=== PATIENT | male | born 1955 | race Caucasian/White ===

== ENCOUNTER 2020-07-05 08:18 | Outpatient (REF) | payer OTHER, SELFPAY ==
[2020-07-05 10:28] LABS: MANUAL DIFF FLAG NO
[2020-07-05 10:32] LABS: Basophils Absolute Auto 0.1 X10*3/uL (0.0-0.2); Basophils Percent Auto 0.8 % (0-2); Eosinophils Absolute Auto 0.2 X10*3/uL (0.0-0.4); Hematocrit 42.9 % (42-52); Hemoglobin 15.3 g/dl (14.0-18.0); Imm Gran Abs Auto 0.01 X10*3/uL (0.00-0.03); Imm Gran Pct Auto 0.2 % (0.0-0.4); Lymphocytes Absolute Auto 1.9 X10*3/uL (1.2-4.9); Lymphocytes Percent Auto 31.7 % (20-40); Mean Corpuscular HGB Conc 35.7 g/dl (31.0-36.0); Mean Corpuscular Hemoglobin 34.8 pg (27.0-33.0); Mean Corpuscular Volume 97.5 fL (80-98); Mean Platelet Volume 10.8 fL (9.4-12.4); Monocytes Absolute Auto 0.7 X10*3/uL (0.1-1.2); Monocytes Percent Auto 11.2 % (2-11); Neutrophils Absolute Auto 3.2 X10*3/uL (2.0-8.3); Neutrophils Percent Auto 53.1 % (45-73); Platelet Count 258 X10*3/uL (160-400); Red Cell Distribution Width 11.9 % (11.0-16.0)
[2020-07-05 11:23] LABS: Cholesterol 194 mg/dL; Creatinine Urine 93.41 mg/dL; HDL Cholesterol 68 mg/dL; LDL Cholesterol Calculated 86 mg/dl; Microalbum/Creatinine Ratio Ur 11.7 ug/mg cr; Triglycerides 200 mg/dL
[2020-07-05 11:46] LABS: Prostate Specific Antigen Scr 0.33 ng/mL (<0.05-4.0); TSH reflex Free T4 1.24 uIU/mL (0.32-4.0)
== END 2020-07-05 08:19 | disposition home or self-care (01) ==
LOC: HO.WFDLDS 08:18
PROVIDERS: Visit Provider Family Medicine
DX: Z00.00 Encounter for general adult medical examination without abnormal findings (principal); I10 Essential (primary) hypertension; Z12.5 Encounter for screening for malignant neoplasm of prostate
CPT/HCPCS: 36415; 80061; 82043; 84153; 84443; 85025

== ENCOUNTER 2021-07-31 07:05 | Outpatient (REF) | payer OTHER, SELFPAY ==
[2021-07-31 12:02] LABS: Alanine Aminotransferase 23 U/L (0-40); Albumin Level 4.5 g/dL (3.5-5.0); Alkaline Phosphatase 56 U/L (39-117); Anion Gap 13 (12-20); Aspartate Amino Transferase 29 U/L (5-37); Bilirubin Total 0.8 mg/dL (0.0-1.0); Blood Urea Nitrogen 9 mg/dL (9-16); Carbon Dioxide 29 mmol/L (22-29); Chloride 103 mmol/L (96-108); Cholesterol 171 mg/dL; Estimated Glomerular Filt Rate > 60; Glucose Fasting 86 mg/dL (60-99); HDL Cholesterol 62 mg/dL; LDL Cholesterol Calculated 71 mg/dl; Potassium 3.8 mmol/L (3.3-5.1); Sodium 141 mmol/L (135-145); Total Protein 7.5 g/dL (6.5-8.0); Triglycerides 194 mg/dL
[2021-07-31 12:16] LABS: TSH reflex Free T4 1.26 uIU/mL (0.32-4.0)
== END 2021-07-31 07:06 | disposition home or self-care (01) ==
LOC: HO.WFDLDS 07:05
PROVIDERS: Visit Provider Family Medicine
DX: Z00.00 Encounter for general adult medical examination without abnormal findings (principal)
CPT/HCPCS: 36415; 80053; 80061; 84443

== ENCOUNTER 2022-10-22 07:00 | Outpatient (REF) | payer OTHER, SELFPAY ==
[2022-10-22 11:23] LABS: MANUAL DIFF FLAG NO
[2022-10-22 11:40] LABS: Basophils Percent Auto 0.8 % (0-2); Eosinophils Absolute Auto 0.2 X10*3/uL (0.0-0.4); Eosinophils Percent Auto 4.1 % (0-4); Hematocrit 43.8 % (42.0-52.0); Hemoglobin 14.6 g/dl (14.0-18.0); Imm Gran Abs Auto 0.01 X10*3/uL (0.00-0.03); Imm Gran Pct Auto 0.2 % (0.0-0.4); Lymphocytes Absolute Auto 1.8 X10*3/uL (1.2-4.9); Lymphocytes Percent Auto 34.4 % (20-40); Mean Corpuscular HGB Conc 33.3 g/dl (31.0-36.0); Mean Corpuscular Hemoglobin 34.4 pg (27.0-33.0); Mean Corpuscular Volume 103.3 fL (80.0-98.0); Mean Platelet Volume 11.2 fL (9.4-12.4); Monocytes Absolute Auto 0.6 X10*3/uL (0.1-1.2); Monocytes Percent Auto 11.2 % (2-11); Neutrophils Absolute Auto 2.6 x10*3/uL (2.0-8.3); Neutrophils Percent Auto 49.3 % (45-73); Platelet Count 272 X10*3/uL (160-400); Red Blood Count 4.24 X10*6/uL (4.60-5.80); Red Cell Distribution Width 11.7 % (11.0-16.0); White Blood Count 5.2 X10*3/uL (4.8-10.8)
[2022-10-22 12:36] LABS: Creatinine Urine 105.51 mg/dL; Microalbum/Creatinine Ratio Ur 16.1 ug/mg cr
[2022-10-22 12:59] LABS: Prostate Specific Antigen Scr 0.41 ng/mL (<0.05-4.0)
[2022-10-22 13:04] LABS: Alanine Aminotransferase 15 U/L (0-40); Albumin Level 4.3 g/dL (3.5-5.0); Alkaline Phosphatase 85 U/L (39-117); Anion Gap 14 (12-20); Aspartate Amino Transferase 26 U/L (5-37); Bilirubin Total 0.3 mg/dL (0.0-1.0); Blood Urea Nitrogen 12 mg/dL (9-16); Calcium 9.7 mg/dL (8.4-10.2); Carbon Dioxide 30 mmol/L (22-29); Chloride 104 mmol/L (96-108); Cholesterol 168 mg/dL; Estimated Glomerular Filt Rate > 60; Glucose Fasting 166 mg/dL (60-99); HDL Cholesterol 62 mg/dL; LDL Cholesterol Calculated 75 mg/dl; Potassium 4.6 mmol/L (3.3-5.1); Sodium 143 mmol/L (135-145); TSH reflex Free T4 1.87 uIU/mL (0.32-4.0); Total Protein 7.2 g/dL (6.5-8.0); Triglycerides 156 mg/dL
[2022-10-22 13:04] LABS: Appearance Urine Clear; Color Urine Yellow; Glucose Urine UA Negative (Negative); Leukocyte Esterase Urine Negative (Negative); Nitrite Urine Negative (Negative); Urine Blood Negative (Negative); Urine Ketones Negative (Negative); Urine Protein Trace mg/dL (Neg-Trace)
== END 2022-10-22 07:01 | disposition home or self-care (01) ==
LOC: HO.WFDLDS 07:00
PROVIDERS: Visit Provider Family Medicine
DX: Z00.00 Encounter for general adult medical examination without abnormal findings (principal); Z12.5 Encounter for screening for malignant neoplasm of prostate; I10 Essential (primary) hypertension
CPT/HCPCS: 36415; 80053; 80061; 81003; 82043; 84153; 84443; 85025

== ENCOUNTER 2022-10-29 08:51 | Outpatient (AMB) | payer OTHER, SELFPAY ==
[2022-10-29 08:56] VITALS: BP 128/68; PULSE 84; RESP 12; TEMP 36.8; O2SAT 98; BMI 20.4
--- NOTE | 2022-10-29 08:56 | A.OFFPC_ITS ---
Vital Signs 10/29/22 08:56 Height 5 ft 8 in Weight 134 lb BMI 20.4 BP 128/68 Blood Pressure Location Lt brachial Position Sitting Respiration 12 Pulse 84 Pulse Source Pulse Oximeter Temp 98.3 F Temp Source Temporal Artery Scan Pulse Oximetry (%) 98 Oxygen Delivery Method Room Air Intake Visit Reasons: CPE with f/u labs and health maintenance Intake Note: Patient would like a refill on his tizanidine. Utilization Management Rn Required: No Accompanied by: Self / Same As Patient Allergies grass pollen Allergy (Verified 10/29/22 09:02) Itchy Eyes Tobacco use date assessed: 03/20/22 Fall risk assessment: No Falls in past year Last assessed Fall Risk: 10/29/22 Dental Screening Dental Screen Date: 10/29/22 Did you have a dental visit in the last 12 months?: No Did you have a dental problem in the last 6 months where you did not have access to dental care?: No Was dental information given to patient?: Yes HPI CPE with f/u labs and health maintenance HPI Details 67 y/o male presents for a CPE with f/u labs and health maintenance. Labs were drawn 10/22/22. Mildly low RBC 4.24. MCV/MCH elevated at 103.3 fL and 34.4 pg respectively. Triglycerides 156. TC 168. LDL 75. HDL 52. Elevated fasting glucose of 166. Pt reports he had not been fasting when he had these labs drawn. A1c today 10/29/22 is 4.9%. [facility] Medical History No pertinent past medical history Surgical History History of back surgery Family History Mother No problems noted. Father No problems noted. Brother FH: mental illness Other Substance abuse Social History Housing: House Alcohol intake: current Alcohol intake frequency: 0-2 drinks per day Alcohol type: hard liquor Patient Tobacco Use Status: Former Tobacco user Quit Date: 2 years ago Tobacco use type: Cigarette e-Cigarette/Vaping Use: Never Used Second Hand Smoke Exposure: No service: No Current occupational status: retired and disabled Current occupational exposures/hazards: No Cognitive needs: No Hearing needs: No Vision needs: No Questionnaire Thrive Questionnaire Date Thrive assessed: 03/20/22 MADDY-7 AMB Questionnaire MADDY-7 Date MADDY - 7 assessed: 03/20/22 Source: Developed by Drs. Maykel Alvarez, Ashley Barcenas, Jonh Pollard and colleagues, with an educational heriberto from [employer]. Review of Systems Const Denies chills, Denies fatigue, Denies fever(s), Denies headache(s) and Denies weakness Eyes Denies change in vision ENT Denies dizziness, Denies headache(s), Denies hearing loss, Denies nasal congestion, Denies sinus pain, Denies sinus pressure and Denies sore throat Card Denies chest pain, Denies lightheadedness, Denies dyspnea and Denies other (palpitations) Resp Denies cough, Denies dyspnea and Denies wheezing GI Denies abdominal pain, Denies melena, Denies hematochezia, Denies change in bowel habits, Denies dyspepsia and Denies nausea Denies hematuria and Denies dysuria Musc Denies abnormal gait, Denies myalgias, Denies arthralgias, Denies numbness and Denies tingling Skin/Breast Denies rash, Denies unusual bruising and Denies wounds Neuro Denies abnormal gait, Denies dizziness, Denies headache(s), Denies memory loss, Denies numbness, Denies Sensory deficit (Neuro), Denies tingling and Denies weakness Psych Denies anxiety, Denies depression and Denies memory loss Endo Denies cold intolerance, Denies fatigue, Denies heat intolerance, Denies polydipsia and Denies polyuria Anup/Lymph Denies easy bleeding and Denies easy bruising Aller/Immun Denies wheezing Physical exam (Primary Care) Vital Signs: Last Vital Signs Temp 98.3 F 10/29/22 08:56 Pulse 84 10/29/22 08:56 Resp 12 10/29/22 08:56 BP 128/68 10/29/22 08:56 Pulse Ox 98 10/29/22 08:56 Oxygen Delivery Method Room Air 10/29/22 08:56 BMI result Body Mass Index 20.4 Tobacco/Smoking Status: Tobacco use Status Tobacco use date assessed 03/20/22 10/29/22 09:05 Patient Tobacco Use Status Former Tobacco user 10/29/22 09:05 Tobacco use type Cigarette 10/29/22 09:05 e-Cigarette/Vaping Use Never Used 10/29/22 09:05 Thrive Assessment: Date of Thrive Assessment Date Thrive assessed 03/20/22 10/29/22 09:05 Const General: no acute distress, well developed, alert and awake Nutritional Appearance: well nourished Orientation/consciousness: patient oriented x3 HENMT Head: Yes normocephalic and Yes atraumatic Ears: hearing grossly normal bilaterally and TM's normal bilaterally General nose exam: Normal external nose present and Normal nares present Mouth: Normal oral and palatal mucosa present and moist mucous membranes Teeth and gingiva: dentition normal Throat: Yes posterior oropharynx normal Eyes General: appearance normal, both eyes and all related structures Pupils: Equal, round and reactive pupils present and Pupil accommodation reflex normal EOM: EOMs intact bilaterally Neck Neck: Yes normal visual inspection, Yes no lymphadenopathy and Yes trachea midline Thyroid: Thyroid normal Carotids: no bruits Lymphatic: no lymphadenopathy noted Chest Chest palpation & inspection: normal inspection of the chest Resp Effort & Inspection: normal respiratory effort Auscultation: clear to auscultation bilaterally Cardio Rate: regular rate Rhythm: regular rhythm Heart sounds: S1 normal heart sound present, S2 normal heart sound present, no gallops, no murmurs and no rubs Bruits: no abdominal aortic bruits and no carotid bruits GI Palpation (GI): No Abdominal aortic bruit present, Soft to palpation, nontender, No hepatosplenomegaly present and No Rebound tenderness present Auscultation: normal bowel sounds General: Yes no CVA tenderness Back/Spine/Pelvis Back: no CVA tenderness Cervical Spine: cervical ROM normal and No Cervical spine tenderness Thoracic/Lumbar Spine: thoraco-lumbar ROM normal, No pain with thoraco-lumbar ROM, No thoracic spinal tenderness and No lumbar spinal tenderness Skin Lesions: no lesions Rashes: no rashes Trauma: no lacerations or abrasions Wounds: no wounds Nails: normal Neuro General: patient oriented x3 Cranial nerves: Yes Equal, round and reactive pupils present Cognition (Neuro): normal cognition Gait exam (Neuro): Normal gait present Motor exam (neuro): 5/5 motor strength present throughout Sensory Exam: No Sensory deficit (Neuro) Deep tendon reflexes (DTR's): Right patellar reflex intensity grade: 2+ and Left patellar reflex intensity grade: 2+ Extrem General: Yes normal to inspection and No edema Psych Appearance: grossly normal Affect: normal affect Attitude: cooperative Thought process: Normal thought process present Assessment and Plan Assessment & Plan (1) Annual physical exam: Code(s): Z00.00 - Encounter for general adult medical examination without abnormal findings Plan: 67-year-old male presents for complete physical exam Encouraged healthy diet with active lifestyle and plenty of exercise (2) Elevated fasting glucose: Code(s): R73.01 - Impaired fasting glucose Plan: Fasting blood sugar was elevated at 166 however patient doubts he was fasting for this test Prior fasting blood sugars were well within normal limits and patient has not had any weight gain-in fact he has lost significant amounts of weight A1c today is 4.9% which is well within normal range. Lab was apparently a nonfasting, random blood sugar. (3) Essential hypertension: Code(s): I10 - Essential (primary) hypertension Plan: Blood pressure is well controlled. Goal is less than 140/90 Continue hydrochlorothiazide Hydrate well (4) Macrocytosis: Code(s): D75.89 - Other specified diseases of blood and blood-forming organs Plan: Mild macrocytosis without anemia Will recheck this (5) Screening for colon cancer: Code(s): Z12.11 - Encounter for screening for malignant neoplasm of colon Plan: Patient declines colonoscopy and Cologuard test at this time - he is dealing with his 's diagnosis of cancer We can readdress at a subsequent visit (6) Screening for prostate cancer: Code(s): Z12.5 - Encounter for screening for malignant neoplasm of prostate Plan: PSA was within normal limits Orders: Orders Complete Blood Count Auto Diff Today D75.89 - Other specified diseases of blood and blood-forming organs, Z00.00 - Encounter for general adult medical examination without abnormal findings Comprehensive Forbes. Panel Fast Today R63.4 - Abnormal weight loss, Z00.00 - Encounter for general adult medical examination without abnormal findings Coding Level of Care Code Est Pt Level 3 (09904) Est Pt Prev Care >65y(49527) Diagnoses Annual physical exam Z00.00 Elevated fasting glucose R73.01 Essential hypertension I10 Macrocytosis D75.89 Screening for colon cancer Z12.11 Screening for prostate cancer Z12.5
== END 2022-10-29 10:22 | disposition home or self-care (01) ==
PROVIDERS: Visit Provider Family Medicine
DX: Z00.00 Encounter for general adult medical examination without abnormal findings (principal); R73.01 Impaired fasting glucose; I10 Essential (primary) hypertension; D75.89 Other specified diseases of blood and blood-forming organs
CPT/HCPCS: 83036; 99397

== ENCOUNTER 2023-01-24 07:01 | Outpatient (REF) | payer OTHER, SELFPAY ==
[2023-01-24 11:13] LABS: MANUAL DIFF FLAG NO
[2023-01-24 11:25] LABS: Alanine Aminotransferase 14 U/L (0-40); Albumin Level 4.5 g/dL (3.5-5.0); Alkaline Phosphatase 61 U/L (39-117); Anion Gap 13 (12-20); Aspartate Amino Transferase 22 U/L (5-37); Bilirubin Total 0.8 mg/dL (0.0-1.0); Blood Urea Nitrogen 12 mg/dL (9-16); Calcium 9.6 mg/dL (8.4-10.2); Carbon Dioxide 28 mmol/L (22-29); Chloride 101 mmol/L (96-108); Estimated Glomerular Filt Rate > 60; Glucose Fasting 97 mg/dL (60-99); Potassium 3.9 mmol/L (3.3-5.1); Sodium 138 mmol/L (135-145); Total Protein 7.3 g/dL (6.5-8.0)
[2023-01-24 11:35] LABS: Basophils Percent Auto 0.6 % (0-2); Eosinophils Absolute Auto 0.2 X10*3/uL (0.0-0.4); Eosinophils Percent Auto 2.5 % (0-4); Hematocrit 43.1 % (42.0-52.0); Imm Gran Abs Auto 0.02 X10*3/uL (0.00-0.03); Imm Gran Pct Auto 0.3 % (0.0-0.4); Lymphocytes Absolute Auto 1.6 X10*3/uL (1.2-4.9); Lymphocytes Percent Auto 25.6 % (20-40); Mean Corpuscular HGB Conc 34.8 g/dl (31.0-36.0); Mean Corpuscular Hemoglobin 34.2 pg (27.0-33.0); Mean Corpuscular Volume 98.2 fL (80.0-98.0); Mean Platelet Volume 10.9 fL (9.4-12.4); Monocytes Absolute Auto 0.6 X10*3/uL (0.1-1.2); Monocytes Percent Auto 9.5 % (2-11); Neutrophils Absolute Auto 3.9 x10*3/uL (2.0-8.3); Neutrophils Percent Auto 61.5 % (45-73); Platelet Count 245 X10*3/uL (160-400); Red Blood Count 4.39 X10*6/uL (4.60-5.80); Red Cell Distribution Width 11.6 % (11.0-16.0); White Blood Count 6.3 X10*3/uL (4.8-10.8)
[2023-01-24 11:44] LABS: Prostate Specific Antigen Scr 0.34 ng/mL (<0.05-4.0)
== END 2023-01-24 07:02 | disposition home or self-care (01) ==
LOC: HO.WFDLDS 07:01
PROVIDERS: Visit Provider Family Medicine
DX: Z00.00 Encounter for general adult medical examination without abnormal findings (principal); Z12.5 Encounter for screening for malignant neoplasm of prostate; D75.89 Other specified diseases of blood and blood-forming organs; R63.4 Abnormal weight loss
CPT/HCPCS: 36415; 80053; 84153; 85025

== ENCOUNTER 2023-03-13 15:42 | Outpatient (AMB) | payer OTHER, SELFPAY ==
--- NOTE | 2023-03-13 15:46 | A.OFFPC_ITS ---
Vital Signs 03/13/23 15:48 Height 5 ft 8 in Weight 134 lb BMI 20.4 BP 106/54 L Blood Pressure Location Rt brachial Position Sitting Respiration 13 Pulse Source Pulse Oximeter Pulse Oximetry (%) 98 Oxygen Delivery Method Room Air Intake Visit Reasons: f/u hypertension, weight loss and labs Intake Note: Patient reports he has no questions or concerns. Fruit Tester Required: No Accompanied by: Self / Same As Patient Allergies grass pollen Allergy (Verified 03/13/23 15:53) Itchy Eyes Tobacco use date assessed: 03/20/22 HPI f/u hypertension, weight loss and labs HPI Details 67 y/o male presents to f/u hypertension and weight changes. Has changed his diet and routine due to changes in 's health. Blood pressure today 106/54. He is on amlodipine 10mg and hydrochlorothiazide 25mg daily. He has maintained same weight he had in October - 134 lbs at 20.4 BMI. [facility] Medical History No pertinent past medical history Surgical History History of back surgery Family History Mother No problems noted. Father No problems noted. Brother FH: mental illness Other Substance abuse Social History Housing: House Alcohol intake: current Alcohol intake frequency: 0-2 drinks per day Alcohol type: hard liquor Patient Tobacco Use Status: Former Tobacco user Quit Date: 2 years ago Tobacco use type: Cigarette e-Cigarette/Vaping Use: Never Used Second Hand Smoke Exposure: No service: No Current occupational status: retired and disabled Current occupational exposures/hazards: No Cognitive needs: No Hearing needs: No Vision needs: No Questionnaire Thrive Questionnaire Date Thrive assessed: 03/20/22 MADDY-7 AMB Questionnaire MADDY-7 Date MADDY - 7 assessed: 03/20/22 Source: Developed by Drs. Maykel Alvarez, Ashley Barcenas, Jonh Pollard and colleagues, with an educational heriberto from [employer] Review of Systems Const Denies chills, Denies fatigue, Denies fever(s), Denies headache(s) and Denies weakness ENT Denies dizziness and Denies headache(s) Card Denies chest pain, Denies lightheadedness, Denies dyspnea and Denies other (Palpitations) Resp Denies cough, Denies dyspnea, Denies wheezing and Denies other ( shortness of breath) Musc Denies numbness and Denies tingling Neuro Denies dizziness, Denies headache(s), Denies numbness, Denies tingling, Denies paresthesias and Denies weakness Psych Denies anxiety and Denies depression Endo Denies fatigue Aller/Immun Denies wheezing Physical exam (Primary Care) Vital Signs: Last Vital Signs Resp 13 03/13/23 15:48 BP 106/54 L 03/13/23 15:48 Pulse Ox 98 03/13/23 15:48 Oxygen Delivery Method Room Air 03/13/23 15:48 BMI result Body Mass Index 20.4 Tobacco/Smoking Status: Tobacco use Status Tobacco use date assessed 03/20/22 03/13/23 15:47 Patient Tobacco Use Status Former Tobacco user 03/13/23 15:47 Tobacco use type Cigarette 03/13/23 15:47 e-Cigarette/Vaping Use Never Used 03/13/23 15:47 Thrive Assessment: Date of Thrive Assessment Date Thrive assessed 03/20/22 03/13/23 15:47 Const General: no acute distress and well developed Nutritional Appearance: well nourished Orientation/consciousness: patient oriented x3 [facility] Head: Yes normocephalic and Yes atraumatic Eyes General: appearance normal, both eyes and all related structures Pupils: Equal, round and reactive pupils present EOM: EOMs intact bilaterally Resp Effort & Inspection: normal respiratory effort Auscultation: clear to auscultation bilaterally Cardio Rate: regular rate Rhythm: regular rhythm Heart sounds: S1 normal heart sound present, S2 normal heart sound present, no gallops, no murmurs and no rubs Neuro General: patient oriented x3 and gait normal Cranial nerves: Yes Equal, round and reactive pupils present Psych Affect: normal affect Assessment and Plan Assessment & Plan (1) Essential hypertension: Code(s): I10 - Essential (primary) hypertension Plan: Blood?pressure?is?on?the?low?side?and?patient?had?been?losing?weight. Will?have?him?ease?up?on?hydrochlorothiazide Continue?amlodipine He?has?a?blood?pressure?monitor?at?home?and?can?let?me?know?if?blood?pressures?a re?climbing?too?high. Plan Patient?had?also?had?some?significant?weight?loss?previously.??This?seems?to?hav e?leveled?out. Encouraged?healthy?diet Medications: Changed From hydrochlorothiazide 25 mg PO DAILY 90 days 90 tabs 4RF To hydrochlorothiazide 12.5 mg PO DAILY 90 tabs 4RF 90 days Coding Level of Care Code Est Pt Level 3 (00431) Diagnoses Essential hypertension I10
[2023-03-13 15:48] VITALS: BP 106/54; RESP 13; O2SAT 98; BMI 20.4
== END 2023-03-13 16:55 | disposition home or self-care (01) ==
PROVIDERS: PCP Family Medicine; Visit Provider Family Medicine
DX: I10 Essential (primary) hypertension (principal)
CPT/HCPCS: 99213

== ENCOUNTER 2023-06-17 09:21 | Outpatient (AMB) | payer OTHER, SELFPAY ==
[2023-06-17 09:40] VITALS: BP 122/78; PULSE 71; O2SAT 96; BMI 21.0
--- NOTE | 2023-06-17 09:40 | MHC.PC.OV ---
Vital Signs 06/17/23 09:40 Height 5 ft 8 in Weight 138 lb BMI 21.0 BP 122/78 Blood Pressure Location Lt brachial Position Sitting Pulse 71 Pulse Source Pulse Oximeter Pulse Oximetry (%) 96 Oxygen Delivery Method Room Air Intake Visit Reasons: f/u hypertension Intake Note: Patient is here to follow up on hypertension. Allergies grass pollen Allergy (Verified 06/17/23 09:41) Itchy Eyes Medication List - Last Reconciled 06/17/23 by Manuel Cavazos MD amlodipine 10 mg PO DAILY 90 days gabapentin 600 mg PO QID 90 days hydrochlorothiazide 12.5 mg PO DAILY 90 days tizanidine 2 mg PO BEDTIME PRN 30 days Tobacco use date assessed: 06/17/23 Fall risk assessment: No Falls in past year Last assessed Fall Risk: 06/17/23 Dental Screening Dental Screen Date: 06/17/23 Did you have a dental visit in the last 12 months?: No Did you have a dental problem in the last 6 months where you did not have access to dental care?: No Was dental information given to patient?: Patient declined HPI f/u hypertension HPI Details 68 y/o male presents to f/u hypertension. Blood pressure had been a bit low last office visit so had decreased his hydrochlorothiazide from 25mg daily to 12.5mg daily and continue his amlodipine 10mg. Blood pressure today 122/78. He is on amlodipine 10mg, HCTZ 12.5mg daily. HPI Comments History of Present Illness Details Documentation assistance for Manuel Cavazos MD, was provided by Angel Segovia, Door Operator on 06/17/2023 10:[address] Dirk LOPEZ, have read, observed, and verified documentation. [facility] Medical History No pertinent past medical history Surgical History History of back surgery Family History Mother No problems noted. Father No problems noted. Brother FH: mental illness Other Substance abuse Social History Housing: House Alcohol intake: current Alcohol intake frequency: 0-2 drinks per day Alcohol type: hard liquor Patient Tobacco Use Status: Former Tobacco user Quit Date: 2 years ago Tobacco use type: Cigarette e-Cigarette/Vaping Use: Never Used Second Hand Smoke Exposure: No service: No Current occupational status: retired and disabled Current occupational exposures/hazards: No Cognitive needs: No Hearing needs: No Vision needs: No Questionnaire PHQ-9 Over the last 2 weeks, how often have you been bothered by any of the following problems? 1. Little interest or pleasure in doing things: not at all 2. Feeling down, depressed, or hopeless: not at all 3. Trouble falling or staying asleep, or sleeping too much: not at all 4. Feeling tired or having little energy: not at all 5. Poor appetite or overeating: not at all 6. Feeling bad about yourself - or that you are a failure or have let yourself or your family down: not at all 7. Trouble concentrating on things, such as reading the newspaper or watching television: not at all 8. Moving or speaking so slowly that other people could have noticed. Or the opposite - being so fidgety or restless that you have been moving around a lot more than usual: not at all 9. Thoughts that you would be better off or of hurting yourself in some way: not at all Total score: 0 Depression Screening Interpretation: Negative Depression Screening Done: Yes 32095 - PHQ-9 Billing: Yes Source: Developed by Drs. Maykel Alvarez, Ashley Barcenas, Jonh Pollard and colleagues, with an educational heriberto from [employer]. Thrive Questionnaire Date Thrive assessed: 06/17/23 I am a: Patient What is your living situation today?: I have a steady place to live Within the past 12 months, did the food you bought not last and you didn't have the money to get more?: Never true Within the past 12 months, did you worry whether your food would run out before you got money to buy more?: Never true Do you have trouble paying for medicines?: No Do you have trouble getting transportation to medical appointments?: No Do you have trouble paying your heating and electricity bill?: No Do you have trouble taking care of your child, family member or friend?: No Do you have trouble with day-to-day activities such as bathing, preparing meals, shopping, managing finances, etc.?: No Are you currently unemployed and looking for a job?: No Are you interested in more education?: No THRIVE Score: 0 AUDIT C Alcohol Use Questionnaire (AUDIT-C) 1. How often do you have a drink containing alcohol?: Monthly or less 2. How many drinks containing alcohol do you have on a typical day when you are drinking?: 1 or 2 3. How often do you have six or more drinks on one occasion?: Never Total Score: 1 MADDY-7 AMB Questionnaire MADDY-7 Date MADDY - 7 assessed: 06/17/23 Feeling nervous, anxious, or on edge: 0 = Not at all Not being able to stop or control worryin = Not at all Worrying too much about different things: 0 = Not at all Trouble relaxin = Not at all Being so restless that it is hard to sit still: 0 = Not at all Becoming easily annoyed or irritable: 0 = Not at all Feeling afraid as if something awful might happen: 0 = Not at all Total MADDY-7 score (0-4 normal; 5-9 mild; 10-14 moderate; 15-21 severe): 0 Source: Developed by Drs. Maykel Alvarez, Ashley Barcenas, Jonh Pollard and colleagues, with an educational heirberto from [employer]. MADDY-7 Assessment Billing MADDY-7 Assessment Tool: MADDY-7 Assessment 89909 Review of Systems Const Denies chills, Denies fatigue, Denies fever(s), Denies headache(s) and Denies weakness ENT Denies dizziness and Denies headache(s) Card Denies chest pain, Denies lightheadedness, Denies dyspnea and Denies other (Palpitations) Resp Denies cough, Denies dyspnea, Denies wheezing and Denies other ( shortness of breath) Musc Denies numbness and Denies tingling Neuro Denies dizziness, Denies headache(s), Denies numbness, Denies tingling, Denies paresthesias and Denies weakness Psych Denies anxiety and Denies depression Endo Denies fatigue Aller/Immun Denies wheezing Physical exam (Primary Care) Vital Signs: Last Vital Signs Pulse 71 06/17/23 09:40 BP 122/78 04/02/24 09:40 Pulse Ox 96 06/17/23 09:40 Oxygen Delivery Method Room Air 06/17/23 09:40 BMI result Body Mass Index 21.0 Tobacco/Smoking Status: Tobacco use Status Tobacco use date assessed 06/17/23 06/17/23 09:44 Patient Tobacco Use Status Former Tobacco user 06/17/23 09:44 Tobacco use type Cigarette 06/17/23 09:44 e-Cigarette/Vaping Use Never Used 06/17/23 09:44 PHQ-9: PHQ-9 Score PHQ-9: Total score 0 06/17/23 10:04 Depression Screening Interpretation: Negative Thrive Assessment: Date of Thrive Assessment Date Thrive assessed 06/17/23 06/17/23 09:46 Const General: no acute distress and well developed Nutritional Appearance: well nourished Orientation/consciousness: patient oriented x3 HENMT Head: Yes normocephalic and Yes atraumatic Eyes General: appearance normal, both eyes and all related structures Pupils: Equal, round and reactive pupils present EOM: EOMs intact bilaterally Resp Effort & Inspection: normal respiratory effort Auscultation: clear to auscultation bilaterally Cardio Rate: regular rate Rhythm: regular rhythm Heart sounds: S1 normal heart sound present, S2 normal heart sound present, no gallops, no murmurs and no rubs Neuro General: patient oriented x3 and gait normal Cranial nerves: Yes Equal, round and reactive pupils present Psych Affect: normal affect Assessment and Plan Assessment & Plan (1) Essential hypertension: Code(s): I10 - Essential (primary) hypertension Plan: Blood?pressure?is?well?controlled.??Goal?is?less?than?140/90 Continue?current?medication?regimen (2) Unintentional weight loss: Code(s): R63.4 - Abnormal weight loss Plan: Weight?loss?has?stopped?them?patient?has?gained?back?some?weight. BMI?is?in?normal?range Continue?to?eat?a?healthy?diet He?will?let?me?know?if?he?is?having?any?further?problems Orders: Orders Comprehensive [place]. Panel Fast Today Z00.00 - Encounter for general adult medical examination without abnormal findings Lipid Panel Today Z00.00 - Encounter for general adult medical examination without abnormal findings Complete Blood Count Auto Diff Today Z00.00 - Encounter for general adult medical examination without abnormal findings Microalbumin, Random (w Creat) Today I10 - Essential (primary) hypertension TSH reflex Free T4 Today Z00.00 - Encounter for general adult medical examination without abnormal findings UA and rflx microscopic Today Z00.00 - Encounter for general adult medical examination without abnormal findings Prostate Specific Antigen Scr Today Z12.5 - Encounter for screening for malignant neoplasm of prostate Medications: Refilled hydrochlorothiazide 12.5 mg PO DAILY 90 tabs 4RF 90 days Coding Level of Care Code Est Pt Level 3 (31395) Diagnoses Essential hypertension I10 Unintentional weight loss R63.4 Additional Codes MADDY-7 Assessment Billing - MADDY-7 Assessment Tool: MADDY-7 Assessment 97270 ([id number])
== END 2023-06-17 10:14 | disposition home or self-care (01) ==
PROVIDERS: PCP Family Medicine; Visit Provider Family Medicine
DX: I10 Essential (primary) hypertension (principal); R63.4 Abnormal weight loss
CPT/HCPCS: 99213

== ENCOUNTER 2023-10-27 07:37 | Outpatient (REF) | payer MEDICARE, SELFPAY ==
[2023-10-27 11:05] LABS: Appearance Urine Clear; Color Urine Yellow; Glucose Urine UA Negative (Negative); Leukocyte Esterase Urine Negative (Negative); Nitrite Urine Negative (Negative); PH 6.5 (5.0-9.0); Specific Gravity - Urine 1.015 (1.005-1.025); Urine Blood Negative (Negative); Urine Ketones Negative (Negative); Urine Protein Negative (Neg-Trace)
[2023-10-27 11:49] LABS: Creatinine Urine 74.33 mg/dL; Microalbum/Creatinine Ratio Ur 16.1 ug/mg cr (<30)
== END 2023-10-27 07:38 | disposition home or self-care (01) ==
LOC: HO.WFDLDS 07:37
PROVIDERS: Visit Provider Family Medicine
DX: Z00.00 Encounter for general adult medical examination without abnormal findings (principal); I10 Essential (primary) hypertension
CPT/HCPCS: 81003; 82043; 82570

== ENCOUNTER 2023-10-28 07:36 | Outpatient (REF) | payer MEDICARE, SELFPAY ==
[2023-10-28 11:53] LABS: MANUAL DIFF FLAG NO
[2023-10-28 12:00] LABS: Basophils Absolute Auto 0.1 X10*3/uL (0.0-0.2); Basophils Percent Auto 0.9 % (0-2); Eosinophils Absolute Auto 0.3 X10*3/uL (0.0-0.4); Eosinophils Percent Auto 5.8 % (0-4); Hematocrit 41.8 % (42.0-52.0); Hemoglobin 14.5 g/dl (14.0-18.0); Imm Gran Abs Auto 0.01 X10*3/uL (0.00-0.03); Imm Gran Pct Auto 0.2 % (0.0-0.4); Lymphocytes Absolute Auto 1.6 X10*3/uL (1.2-4.9); Lymphocytes Percent Auto 29.8 % (20-40); Mean Corpuscular HGB Conc 34.7 g/dl (31.0-36.0); Mean Platelet Volume 10.9 fL (9.4-12.4); Monocytes Absolute Auto 0.6 X10*3/uL (0.1-1.2); Monocytes Percent Auto 10.8 % (2-11); Neutrophils Absolute Auto 2.8 x10*3/uL (2.0-8.3); Neutrophils Percent Auto 52.5 % (45-73); Platelet Count 270 X10*3/uL (160-400); Red Blood Count 4.14 X10*6/uL (4.60-5.80); Red Cell Distribution Width 12.3 % (11.0-16.0); White Blood Count 5.4 X10*3/uL (4.8-10.8)
[2023-10-28 12:42] LABS: Alanine Aminotransferase 14 U/L (0-40); Albumin Level 4.4 g/dL (3.5-5.0); Alkaline Phosphatase 79 U/L (39-117); Anion Gap 12 (12-20); Aspartate Amino Transferase 24 U/L (5-37); Bilirubin Total 0.9 mg/dL (0.0-1.0); Blood Urea Nitrogen 7 mg/dL (9-16); Calcium 9.3 mg/dL (8.4-10.2); Carbon Dioxide 29 mmol/L (22-29); Chloride 100 mmol/L (96-108); Cholesterol 184 mg/dL (<200); Estimated Glomerular Filt Rate > 60; Glucose Fasting 86 mg/dL (60-99); HDL Cholesterol 88 mg/dL (>40); LDL Cholesterol Calculated 83 mg/dL (<100); Potassium 3.7 mmol/L (3.3-5.1); Sodium 137 mmol/L (135-145); TSH reflex Free T4 1.42 uIU/mL (0.32-4.0); Total Protein 7.2 g/dL (6.5-8.0); Triglycerides 68 mg/dL (<150)
== END 2023-10-28 07:37 | disposition home or self-care (01) ==
LOC: HO.WFDLDS 07:36
PROVIDERS: Visit Provider Family Medicine
DX: Z00.00 Encounter for general adult medical examination without abnormal findings (principal); Z12.5 Encounter for screening for malignant neoplasm of prostate
CPT/HCPCS: 36415; 80053; 80061; 84153; 84443; 85025

== ENCOUNTER 2023-10-30 08:40 | Outpatient (AMB) | payer MEDICARE, SELFPAY ==
--- NOTE | 2023-10-30 08:55 | MHC.PC.OV ---
Vital Signs 10/30/23 09:02 Height 5 ft 10 in Weight 135 lb 4 oz BMI 19.4 BP 106/60 Blood Pressure Location Rt brachial Position Sitting Respiration 18 Pulse 70 Pulse Source Pulse Oximeter Temp 98 F Temp Source Tympanic Pulse Oximetry (%) 96 Oxygen Delivery Method Room Air Intake Visit Reasons: CPE with f/u labs and health maint. - see comment Intake Note: CPE WITH FOLLOW UP LABS Allergies grass pollen Allergy (Verified 10/30/23 08:55) Itchy Eyes Tobacco use date assessed: 06/17/23 Dental Screening Dental Screen Date: 10/30/23 Did you have a dental visit in the last 12 months?: No Did you have a dental problem in the last 6 months where you did not have access to dental care?: No Was dental information given to patient?: No HPI CPE with f/u labs and health maint. - see comment HPI Details 68 y/o male presents for a CPE with f/u labs and health maintenance. Labs were drawn 10/28/23. Reviewed labs with pt. Mild anemia. He notes hx of B12 shots. Triglycerides 68. TC 184. LDL 83. HDL 88. Reports some depression - he states thoughts of suicide but reports he would never act on this. [facility] Medical History No pertinent past medical history Surgical History History of back surgery Family History Mother No problems noted. Father No problems noted. Brother FH: mental illness Other Substance abuse Social History (Updated 10/30/23 @ 08:58 by Sosa Bains) Housing: House Alcohol intake: current Alcohol intake frequency: 0-2 drinks per day Alcohol type: hard liquor Patient Tobacco Use Status: Former Tobacco user Tobacco use type: Cigarette e-Cigarette/Vaping Use: Never Used Second Hand Smoke Exposure: No service: No Current occupational status: retired and disabled Current occupational exposures/hazards: No Cognitive needs: No Hearing needs: No Vision needs: No Questionnaire PHQ-9 Over the last 2 weeks, how often have you been bothered by any of the following problems? 1. Little interest or pleasure in doing things: not at all 2. Feeling down, depressed, or hopeless: not at all 3. Trouble falling or staying asleep, or sleeping too much: not at all 4. Feeling tired or having little energy: not at all 5. Poor appetite or overeating: not at all 6. Feeling bad about yourself - or that you are a failure or have let yourself or your family down: not at all 7. Trouble concentrating on things, such as reading the newspaper or watching television: not at all 8. Moving or speaking so slowly that other people could have noticed. Or the opposite - being so fidgety or restless that you have been moving around a lot more than usual: not at all 9. Thoughts that you would be better off or of hurting yourself in some way: not at all Total score: 0 Depression Screening Interpretation: Negative Depression Screening Done: Yes [id number] - PHQ-9 Billing: Yes Source: Developed by Drs. Maykel Alvarez, Ashley Barcenas, Jonh Pollard and colleagues, with an educational heriberto from [employer]. Thrive Questionnaire Date Thrive assessed: 10/30/23 I am a: Patient What is your living situation today?: I have a steady place to live Within the past 12 months, did the food you bought not last and you didn't have the money to get more?: Never true Within the past 12 months, did you worry whether your food would run out before you got money to buy more?: Never true Do you have trouble paying for medicines?: No Do you have trouble paying your heating and electricity bill?: No Do you have trouble taking care of your child, family member or friend?: No Do you have trouble with day-to-day activities such as bathing, preparing meals, shopping, managing finances, etc.?: No Are you currently unemployed and looking for a job?: No Are you interested in more education?: No Currently or been in a relationship where the following occur: No concerns reported THRIVE Score: 0 AUDIT C Alcohol Use Questionnaire (AUDIT-C) 1. How often do you have a drink containing alcohol?: 2-3 times a week 2. How many drinks containing alcohol do you have on a typical day when you are drinking?: 1 or 2 3. How often do you have six or more drinks on one occasion?: Less than monthly Total Score: 4 Score Reviewed/Action Taken: Yes MADDY-7 AMB Questionnaire MADDY-7 Date MADDY - 7 assessed: 10/30/23 Feeling nervous, anxious, or on edge: 0 = Not at all Not being able to stop or control worryin = Not at all Worrying too much about different things: 0 = Not at all Trouble relaxin = Not at all Being so restless that it is hard to sit still: 0 = Not at all Becoming easily annoyed or irritable: 0 = Not at all Feeling afraid as if something awful might happen: 0 = Not at all Total MADDY-7 score (0-4 normal; 5-9 mild; 10-14 moderate; 15-21 severe): 0 Source: Developed by Drs. Maykel Alvarez, Ashley Barcenas, Jonh Pollard and colleagues, with an educational heriberto from [employer]. MADDY-7 Assessment Billing MADDY-7 Assessment Tool: MADDY-7 Assessment 92700 Review of Systems Const Denies chills, Denies fatigue, Denies fever(s), Denies headache(s) and Denies weakness Eyes Denies change in vision ENT Denies dizziness, Denies headache(s), Denies hearing loss, Denies nasal congestion, Denies sinus pain, Denies sinus pressure and Denies sore throat Card Denies chest pain, Denies lightheadedness, Denies dyspnea and Denies other (palpitations) Resp Denies cough, Denies dyspnea and Denies wheezing GI Denies abdominal pain, Denies melena, Denies hematochezia, Denies change in bowel habits, Denies dyspepsia and Denies nausea Denies hematuria and Denies dysuria Musc Denies abnormal gait, Denies myalgias, Denies arthralgias, Denies numbness and Denies tingling Skin/Breast Denies rash, Denies unusual bruising and Denies wounds Neuro Denies abnormal gait, Denies dizziness, Denies headache(s), Denies memory loss, Denies numbness, Denies Sensory deficit (Neuro), Denies tingling and Denies weakness Psych Reports anxiety, Reports depression and Denies memory loss Endo Denies cold intolerance, Denies fatigue, Denies heat intolerance, Denies polydipsia and Denies polyuria Anup/Lymph Denies easy bleeding and Denies easy bruising Aller/Immun Denies wheezing Physical exam (Primary Care) Vital Signs: Last Vital Signs Temp 98 F 10/30/23 09:02 Pulse 70 10/30/23 09:02 Resp 18 10/30/23 09:02 BP 106/60 10/30/23 09:02 Pulse Ox 96 10/30/23 09:02 Oxygen Delivery Method Room Air 10/30/23 09:02 BMI result Body Mass Index 19.4 Tobacco/Smoking Status: Tobacco use Status Tobacco use date assessed 06/17/23 10/30/23 09:04 Patient Tobacco Use Status Former Tobacco user 10/30/23 09:04 Tobacco use type Cigarette 10/30/23 09:04 e-Cigarette/Vaping Use Never Used 10/30/23 09:04 PHQ-9: PHQ-9 Score PHQ-9: Total score 0 10/30/23 09:04 Depression Screening Interpretation: Negative Thrive Assessment: Date of Thrive Assessment Date Thrive assessed 10/30/23 10/30/23 09:04 Currently or been in a relationship where the following occur: No concerns reported Const General: no acute distress, well developed, alert and awake Nutritional Appearance: well nourished Orientation/consciousness: patient oriented x3 HENMT Head: Yes normocephalic and Yes atraumatic Ears: hearing grossly normal bilaterally and TM's normal bilaterally General nose exam: Normal external nose present and Normal nares present Mouth: Normal oral and palatal mucosa present and moist mucous membranes Teeth and gingiva: dentition normal Throat: Yes posterior oropharynx normal Eyes General: appearance normal, both eyes and all related structures Pupils: Equal, round and reactive pupils present and Pupil accommodation reflex normal EOM: EOMs intact bilaterally Neck Neck: Yes normal visual inspection, Yes no lymphadenopathy and Yes trachea midline Thyroid: Thyroid normal Carotids: no bruits Lymphatic: no lymphadenopathy noted Chest Chest palpation & inspection: normal inspection of the chest Resp Effort & Inspection: normal respiratory effort Auscultation: clear to auscultation bilaterally Cardio Rate: regular rate Rhythm: regular rhythm Heart sounds: S1 normal heart sound present, S2 normal heart sound present, no gallops, no murmurs and no rubs Bruits: no abdominal aortic bruits and no carotid bruits GI Palpation (GI): No Abdominal aortic bruit present, Soft to palpation, nontender, No hepatosplenomegaly present and No Rebound tenderness present Auscultation: normal bowel sounds General: Yes no CVA tenderness Back/Spine/Pelvis Back: no CVA tenderness Cervical Spine: cervical ROM normal and No Cervical spine tenderness Thoracic/Lumbar Spine: thoraco-lumbar ROM normal, No pain with thoraco-lumbar ROM, No thoracic spinal tenderness and No lumbar spinal tenderness Skin Lesions: no lesions Rashes: no rashes Trauma: no lacerations or abrasions Wounds: no wounds Nails: normal Neuro General: patient oriented x3 Cranial nerves: Yes Equal, round and reactive pupils present Cognition (Neuro): normal cognition Gait exam (Neuro): Normal gait present Motor exam (neuro): 5/5 motor strength present throughout Sensory Exam: No Sensory deficit (Neuro) Deep tendon reflexes (DTR's): Right patellar reflex intensity grade: 2+ and Left patellar reflex intensity grade: 2+ Extrem General: Yes normal to inspection and No edema Psych Appearance: grossly normal Affect: normal affect Attitude: cooperative Thought process: Normal thought process present Assessment and Plan Assessment & Plan (1) Annual physical exam: Code(s): Z00.00 - Encounter for general adult medical examination without abnormal findings Plan: 68-year-old?male?presents?for?complete?physical?exam Exam?today?is?within?normal?limits Encouraged?healthy?diet?with?active?lifestyle?and?plenty?of?exercise (2) Mild anemia: Code(s): D64.9 - Anemia, unspecified Plan: Mild/borderline?anemia Persistent?microcytosis. Patient?has?been?on?B12?in?the?past?and?I?encouraged?him?to?resume?this.??Will?also?check?his?B12?level Will?repeat?in?about?3?months (3) Essential hypertension: Code(s): I10 - Essential (primary) hypertension Plan: Blood?pressure?is?controlled.??Goal?is?less?than?140/90 Continue?current?medications (4) Depression with anxiety: Code(s): F41.8 - Other specified anxiety disorders Plan: Currently?stable Patient?confided?some?thoughts?of?feeling?better?off but?has?no?intentions?of?harming?himself?or?others?and?no?plans. Contracts?for?safety?here.??Has?family/friends?support (5) Screening for prostate cancer: Code(s): Z12.5 - Encounter for screening for malignant neoplasm of prostate Plan: PSA?is?within?normal?limits Will?continue?annual?screening (6) Screening for colon cancer: Code(s): Z12.11 - Encounter for screening for malignant neoplasm of colon Plan: Patient?had?a?positive?Cologuard?test?in?the?fall?of?2021. Had?referred?him?to?[facility]?but?he?canceled?the?appointment He?has?been?dealing?with?significant?illness?of?his?spouse We?discussed?trying?again?to?have?him?see?the?wire preparation worker. Of?note,?patient?has?a?mild?anemia.??Also?gradual?weight?loss?and?is?noted?to?be?slightly?underweight?today.??Otherwise?feels?well. (7) Underweight: Code(s): R63.6 - Underweight Plan: Mildly?underweight.??Has?had?slow?gradual?weight?loss. Encouraged?him?to?work?at?increasing?caloric?intake. Patient?feels?well. However,?patient?does?have?a?history?of?positive?Cologuard?test.??He?also?has?a?mild?persistent?macrocytosis?with?borderline?anemia?and?this?may?be?unrelated.??Discussed?that?he?should?have?follow-up?with?a?wire preparation worker.??Had?made?a?referral?bu t?he?had?canceled?it. Will?continue?to?follow?weight?and?if?weight?continues?to?decline,?will?workup?further Orders: Orders Vitamin B12 and Folate Today D64.9 - Anemia, unspecified, E53.8 - Deficiency of other specified B group vitamins IRON PROFILE Today D64.9 - Anemia, unspecified Complete Blood Count Auto Diff Today D64.9 - Anemia, unspecified, Z00.00 - Encounter for general adult medical examination without abnormal findings Coding Level of Care Code Est Pt Level 3 (35895) Est Pt Prev Care >65y(21394) Diagnoses Annual physical exam Z00.00 Mild anemia D64.9 Essential hypertension I10 Depression with anxiety F41.8 Screening for prostate cancer Z12.5 Screening for colon cancer Z12.11 Underweight R63.6 Additional Codes MADDY-7 Assessment Billing - MADDY-7 Assessment Tool: MADDY-7 Assessment [id number] ([id number])
[2023-10-30 09:02] VITALS: BP 106/60; PULSE 70; RESP 18; TEMP 36.6; O2SAT 96; BMI 19.4
== END 2023-10-30 09:30 | disposition home or self-care (01) ==
PROVIDERS: PCP Family Medicine; Visit Provider Family Medicine
DX: Z00.00 Encounter for general adult medical examination without abnormal findings (principal); D64.9 Anemia, unspecified; R63.6 Underweight; I10 Essential (primary) hypertension; F41.8 Other specified anxiety disorders; Z12.5 Encounter for screening for malignant neoplasm of prostate; Z12.11 Encounter for screening for malignant neoplasm of colon
CPT/HCPCS: 99213; 99397

== ENCOUNTER 2024-02-02 07:39 | Outpatient (REF) | payer MEDICARE, SELFPAY ==
[2024-02-02 11:28] LABS: MANUAL DIFF FLAG NO
[2024-02-02 12:00] LABS: Basophils Absolute Auto 0.1 X10*3/uL (0.0-0.2); Basophils Percent Auto 0.9 % (0-2); Eosinophils Absolute Auto 0.2 X10*3/uL (0.0-0.4); Eosinophils Percent Auto 3.7 % (0-4); Hematocrit 43.1 % (42.0-52.0); Hemoglobin 14.8 g/dl (14.0-18.0); Imm Gran Abs Auto 0.02 X10*3/uL (0.00-0.03); Imm Gran Pct Auto 0.4 % (0.0-0.4); Lymphocytes Absolute Auto 1.5 X10*3/uL (1.2-4.9); Lymphocytes Percent Auto 28.2 % (20-40); Mean Corpuscular HGB Conc 34.3 g/dl (31.0-36.0); Mean Corpuscular Hemoglobin 34.7 pg (27.0-33.0); Mean Corpuscular Volume 101.2 fL (80.0-98.0); Mean Platelet Volume 11.3 fL (9.4-12.4); Monocytes Absolute Auto 0.5 X10*3/uL (0.1-1.2); Monocytes Percent Auto 8.8 % (2-11); Neutrophils Absolute Auto 3.2 x10*3/uL (2.0-8.3); Platelet Count 257 X10*3/uL (160-400); Red Blood Count 4.26 X10*6/uL (4.60-5.80); Red Cell Distribution Width 12.1 % (11.0-16.0); White Blood Count 5.5 X10*3/uL (4.8-10.8)
[2024-02-02 12:15] LABS: Iron 189 mcg/dL (45-160); Percent Iron Saturation 75 % (15-50); Total Iron Binding Capacity 251 mcg/dL (228-428); Unsaturated Iron Binding 62 ug/dL
[2024-02-02 12:43] LABS: Folate 8.8 ng/mL (> or = 4.0); Vitamin B12 > 2000 pg/mL (200-900)
== END 2024-02-02 07:40 | disposition home or self-care (01) ==
LOC: HO.WFDLDS 07:39
PROVIDERS: Visit Provider Family Medicine
DX: Z00.00 Encounter for general adult medical examination without abnormal findings (principal); D64.9 Anemia, unspecified; E53.8 Deficiency of other specified B group vitamins
CPT/HCPCS: 36415; 82607; 82746; 83540; 85025

== ENCOUNTER 2024-02-03 08:28 | Outpatient (AMB) | payer MEDICARE, SELFPAY ==
--- NOTE | 2024-02-03 08:42 | A.OFFPC_ITS ---
Vital Signs 02/03/24 08:43 Height 5 ft 10 in Weight 134 lb 4 oz BMI 19.3 BP 124/60 Blood Pressure Location Rt brachial Position Sitting Respiration 16 Pulse 85 Pulse Source Pulse Oximeter Temp 98.4 F Temp Source Oral Pulse Oximetry (%) 96 Oxygen Delivery Method Room Air Intake Visit Reasons: f/u hypertension, weight Intake Note: f/u htn and labs Allergies grass pollen Allergy (Verified 02/03/24 08:42) Itchy Eyes Medication List - Last Reconciled 02/03/24 by Manuel Cavazos MD amlodipine 10 mg PO DAILY 90 days gabapentin 600 mg PO QID 90 days hydrochlorothiazide 12.5 mg PO DAILY 90 days tizanidine 2 mg PO BEDTIME PRN 30 days Tobacco use date assessed: 06/17/23 Dental Screening Dental Screen Date: 10/30/23 HPI f/u hypertension, weight HPI Details 68 y/o male presents to f/u hypertension . Blood pressure today 124/60, 85p. He is on amlodipine 10mg, HCTZ 12.5mg daily. Mild anemia has improved. Ongoing unintentional weight loss - BMI today 19.3. COUNTS INCLUDE 234 BEDS AT [facility] Medical History No pertinent past medical history Surgical History History of back surgery Family History Mother No problems noted. Father No problems noted. Brother FH: mental illness Other Substance abuse Social History (Updated 10/30/23 @ 08:58 by Sosa Bains [facility]) Housing: House Alcohol intake: current Alcohol intake frequency: 0-2 drinks per day Alcohol type: hard liquor Patient Tobacco Use Status: Former Tobacco user Tobacco use type: Cigarette e-Cigarette/Vaping Use: Never Used Second Hand Smoke Exposure: No service: No Current occupational status: retired and disabled Current occupational exposures/hazards: No Cognitive needs: No Hearing needs: No Vision needs: No Questionnaire PHQ-9 Over the last 2 weeks, how often have you been bothered by any of the following problems? 1. Little interest or pleasure in doing things: not at all 2. Feeling down, depressed, or hopeless: not at all 3. Trouble falling or staying asleep, or sleeping too much: not at all 4. Feeling tired or having little energy: not at all 5. Poor appetite or overeating: not at all 6. Feeling bad about yourself - or that you are a failure or have let yourself or your family down: not at all 7. Trouble concentrating on things, such as reading the newspaper or watching television: not at all 8. Moving or speaking so slowly that other people could have noticed. Or the o pposite - being so fidgety or restless that you have been moving around a lot more than usual: not at all 9. Thoughts that you would be better off or of hurting yourself in some way: not at all Total score: 0 Source: Developed by Drs. Maykel Alvarez, Ashley Barcenas, Jonh Pollard and colleagues, with an educational heriberto from [employer]. Thrive Questionnaire Date Thrive assessed: 10/30/23 I am a: Patient What is your living situation today?: I have a steady place to live Within the past 12 months, did the food you bought not last and you didn't have the money to get more?: Never true Within the past 12 months, did you worry whether your food would run out before you got money to buy more?: Never true Do you have trouble paying for medicines?: No Do you have trouble getting transportation to medical appointments?: No Do you have trouble paying your heating and electricity bill?: No Do you have trouble taking care of your child, family member or friend?: No Do you have trouble with day-to-day activities such as bathing, preparing meals, shopping, managing finances, etc.?: No Are you currently unemployed and looking for a job?: No Are you interested in more education?: No Please select the resources that you would like help with: None Currently or been in a relationship where the following occur: No concerns reported THRIVE Score: 0 AUDIT C Alcohol Use Questionnaire (AUDIT-C) 1. How often do you have a drink containing alcohol?: 2-3 times a week 2. How many drinks containing alcohol do you have on a typical day when you are drinking?: 1 or 2 3. How often do you have six or more drinks on one occasion?: Less than monthly Total Score: 4 MADDY-7 AMB Questionnaire MADDY-7 Date MADDY - 7 assessed: 10/30/23 Feeling nervous, anxious, or on edge: 0 = Not at all Not being able to stop or control worryin = Not at all Worrying too much about different things: 0 = Not at all Trouble relaxin = Not at all Being so restless that it is hard to sit still: 0 = Not at all Becoming easily annoyed or irritable: 0 = Not at all Feeling afraid as if something awful might happen: 0 = Not at all Total MADDY-7 score (0-4 normal; 5-9 mild; 10-14 moderate; 15-21 severe): 0 Source: Developed by Drs. Maykel Alvarez, Ashley Barcenas, Jonh Pollard and colleagues, with an educational heriberto from [employer]. Review of Systems Const Denies chills, Denies fatigue, Denies fever(s), Denies headache(s) and Denies weakness ENT Denies dizziness and Denies headache(s) Card Denies dyspnea Resp Denies cough, Denies dyspnea, Denies wheezing and Denies other (shortness of breath) Musc Denies numbness and Denies tingling Neuro Denies dizziness, Denies headache(s), Denies numbness, Denies tingling and Denies weakness Psych Denies anxiety and Denies depression Endo Denies fatigue Aller/Immun Denies wheezing Physical exam (Primary Care) Vital Signs: Last Vital Signs Temp 98.4 F 02/03/24 08:43 Pulse 85 02/03/24 08:43 Resp 16 02/03/24 08:43 BP 124/60 02/03/24 08:43 Pulse Ox 96 02/03/24 08:43 Oxygen Delivery Method Room Air 02/03/24 08:43 BMI result Body Mass Index 19.3 Tobacco/Smoking Status: Tobacco use Status Tobacco use date assessed 06/17/23 02/03/24 08:46 Patient Tobacco Use Status Former Tobacco user 02/03/24 08:46 Tobacco use type Cigarette 02/03/24 08:46 e-Cigarette/Vaping Use Never Used 02/03/24 08:46 PHQ-9: PHQ-9 Score PHQ-9: Total score 0 02/03/24 08:55 Thrive Assessment: Date of Thrive Assessment Date Thrive assessed 10/30/23 02/03/24 08:46 Currently or been in a relationship where the following occur: No concerns reported Const General: well developed; No acute distress Nutritional Appearance: well nourished Orientation/consciousness: patient oriented x3 HENMT Head: Yes normocephalic and Yes atraumatic Eyes General: appearance normal, both eyes and all related structures Pupils: Equal, round and reactive pupils present EOM: EOMs intact bilaterally Resp Effort & Inspection: normal respiratory effort Neuro General: patient oriented x3 and gait normal Cranial nerves: Yes Equal, round and reactive pupils present Psych Affect: normal affect Coding Level of Care Code Est Pt Level 4 (08406) Diagnoses Essential hypertension I10 Mild anemia D64.9 Macrocytosis D75.89 Weight loss R63.4 Underweight R63.6 Assessment & Plan Assessment & Plan (1) Essential hypertension: Code(s): I10 - Essential (primary) hypertension Category: Medical Plan: Blood?pressure?is?controlled. Goal?is?less?than?140/90 Continue?current?medications (2) Mild anemia: Code(s): D64.9 - Anemia, unspecified Category: Medical Plan: Mild?microcytic?anemia.??Anemia?appears?to?resolved.??He?is?taking?B12 He?can?continue?B12?a?lower?dose-he?has?OTC?B12?at?home (3) Macrocytosis: Code(s): D75.89 - Other specified diseases of blood and blood-forming organs Category: Medical Plan: Will?continue to monitor (4) Weight loss: Code(s): R63.4 - Abnormal weight loss Category: Medical Plan: Patient?has?had?ongoing?unintentional?weight?loss.??Lost?another?lb?since?his?[facility]?visit?despite?my?advice?that?work?increasing?intake?and?protein. Will?check?CMP,?thyroid,?sed?rate?and?also?chest?x- ray.??Recent?CBC?yesterday?mild?anemia Again?advised?patient?to?increase?calories?and?protein. May?need?referral?to?GI?for?absorption?issues Patient?also?has?known?COPD (5) Underweight: Code(s): R63.6 - Underweight Category: Medical Plan: As?above Orders: Orders Comprehensive Met. Panel Today R63.4 - Abnormal weight loss TSH reflex Free T4 Today R63.4 - Abnormal weight loss, Z00.00 - Encounter for general adult medical examination without abnormal findings Hemoglobin A1c Today R63.4 - Abnormal weight loss, R73.01 - Impaired fasting glucose XR chest 2V Today R63.4 - Abnormal weight loss, R63.6 - Underweight, Z87.891 - Personal history of nicotine dependence Erythrocyte Sedimentation Rate Today R63.4 - Abnormal weight loss
[2024-02-03 08:43] VITALS: BP 124/60; PULSE 85; RESP 16; TEMP 36.9; O2SAT 96; BMI 19.3
== END 2024-02-03 09:07 | disposition home or self-care (01) ==
PROVIDERS: PCP Family Medicine; Visit Provider Family Medicine
DX: I10 Essential (primary) hypertension (principal); R63.4 Abnormal weight loss; D64.9 Anemia, unspecified; D75.89 Other specified diseases of blood and blood-forming organs

== ENCOUNTER → 2024-02-03 08:28 | Outpatient (BNVA) | payer MEDICARE, SELFPAY | PROVIDERS: PCP Family Medicine; Visit Provider Family Medicine | DX: I10 Essential (primary) hypertension (principal); D64.9 Anemia, unspecified; D75.89 Other specified diseases of blood and blood-forming organs; R63.4 Abnormal weight loss | CPT/HCPCS: 99212 ==

== ENCOUNTER 2024-05-06 08:46 | Outpatient (REF) | payer MEDICARE, SELFPAY ==
[2024-05-06 12:03] LABS: Estimated Average Glucose 91 mg/dL; Hemoglobin A1C 106.4296 umol/L; Hemoglobin A1c % 4.8 % (<6.0); Total Hemoglobin (HGBA1C) 3628.3204 umol/L
[2024-05-06 12:21] LABS: Alanine Aminotransferase 24 U/L (0-40); Albumin Level 4.4 g/dL (3.5-5.0); Anion Gap 16 (12-20); Aspartate Amino Transferase 41 U/L (5-37); Bilirubin Total 0.5 mg/dL (0.0-1.0); Blood Urea Nitrogen 12 mg/dL (9-16); Calcium 9.2 mg/dL (8.4-10.2); Carbon Dioxide 28 mmol/L (22-29); Chloride 101 mmol/L (96-108); Estimated Glomerular Filt Rate > 60; Glucose Random 89 mg/dL (60-115); Potassium 3.5 mmol/L (3.3-5.1); Sodium 141 mmol/L (135-145); Total Protein 7.6 g/dL (6.5-8.0)
[2024-05-06 12:23] LABS: TSH reflex Free T4 1.09 uIU/mL (0.32-4.0)
[2024-05-06 12:25] LABS: Alkaline Phosphatase 64 U/L (39-117)
[2024-05-06 12:31] LABS: Erythrocyte Sedimentation Rate 5 MM/HR (0-15)
== END 2024-05-06 08:47 | disposition home or self-care (01) ==
LOC: HO.WFDLDS 08:46
PROVIDERS: Visit Provider Family Medicine
DX: Z00.00 Encounter for general adult medical examination without abnormal findings (principal); R63.4 Abnormal weight loss; R73.01 Impaired fasting glucose
CPT/HCPCS: 36415; 80053; 83036; 84443; 85652

== ENCOUNTER 2024-05-11 08:22 | Outpatient (AMB) | payer MEDICARE, SELFPAY ==
--- NOTE | 2024-05-11 08:32 | MHC.PC.OV ---
Vital Signs 05/11/24 08:35 Height 5 ft 10 in Weight 136 lb BMI 19.5 BP 110/58 L Blood Pressure Location Lt brachial Position Sitting Respiration 14 Pulse 78 Pulse Source Pulse Oximeter Temp 98.0 F Temp Source Oral Pulse Oximetry (%) 97 Oxygen Delivery Method Room Air Intake Visit Reasons: f/u HTN, underweight Intake Note: f/u HTN and weight control Medical Collector Required: No Allergies grass pollen Allergy (Verified 05/11/24 08:34) Itchy Eyes Medication List - Last Reconciled 05/11/24 by Manuel Cavazos MD amlodipine 10 mg PO DAILY 90 days gabapentin 600 mg PO QID 90 days hydrochlorothiazide 12.5 mg PO DAILY 90 days tizanidine 2 mg PO BEDTIME PRN 30 days Tobacco use date assessed: 06/17/23 Dental Screening Dental Screen Date: 10/30/23 HPI f/u HTN, underweight HPI Details 68 y/o male presents to f/u HTN, underweight status. Blood pressure today 110/58, 78p. He is on amlodipine 10mg, HCTZ 12.5mg daily. Weight has increased a bit - from 134 lbs to 136 lbs. Hx of elevated fasting glucose and most recent A1c 4.8%. HPI Comments History of Present Illness Details Documentation assistance for Manuel Cavazos MD, was provided by Angel Segovia, Hearing Impaired Teacher on 05/11/2024 at 9:15 AM TYLOR. Ra, Dr. Cavazos, have read, observed, and verified documentation. [facility] Medical History No pertinent past medical history Surgical History History of back surgery Family History Mother No problems noted. Father No problems noted. Brother FH: mental illness Other Substance abuse Social History (Updated 10/30/23 @ 08:58 by MARICRUZ Bond) Housing: House Alcohol intake: current Alcohol intake frequency: 0-2 drinks per day Alcohol type: hard liquor Patient Tobacco Use Status: Former Tobacco user Tobacco use type: Cigarette e-Cigarette/Vaping Use: Never Used Second Hand Smoke Exposure: No service: No Current occupational status: retired and disabled Current occupational exposures/hazards: No Cognitive needs: No Hearing needs: No Vision needs: No Questionnaire Thrive Questionnaire Date Thrive assessed: 10/30/23 I am a: Patient What is your living situation today?: I have a steady place to live Within the past 12 months, did the food you bought not last and you didn't have the money to get more?: Never true Within the past 12 months, did you worry whether your food would run out before you got money to buy more?: Never true Do you have trouble paying for medicines?: No Do you have trouble getting transportation to medical appointments?: No Do you have trouble paying your heating and electricity bill?: No Do you have trouble taking care of your child, family member or friend?: No Do you have trouble with day-to-day activities such as bathing, preparing meals, shopping, managing finances, etc.?: No Are you currently unemployed and looking for a job?: No Are you interested in more education?: No Please select the resources that you would like help with: None Currently or been in a relationship where the following occur: No concerns reported THRIVE Score: 0 AUDIT C Alcohol Use Questionnaire (AUDIT-C) 1. How often do you have a drink containing alcohol?: 2-4 times a month 2. How many drinks containing alcohol do you have on a typical day when you are drinking?: 1 or 2 3. How often do you have six or more drinks on one occasion?: Never Total Score: 2 MADDY-7 AMB Questionnaire MADDY-7 Date MADDY - 7 assessed: 10/30/23 Feeling nervous, anxious, or on edge: 0 = Not at all Not being able to stop or control worryin = Not at all Worrying too much about different things: 0 = Not at all Trouble relaxin = Not at all Being so restless that it is hard to sit still: 0 = Not at all Becoming easily annoyed or irritable: 0 = Not at all Feeling afraid as if something awful might happen: 0 = Not at all Total MADDY-7 score (0-4 normal; 5-9 mild; 10-14 moderate; 15-21 severe): 0 Source: Developed by Drs. Maykel Alvarez, Ashley B.W. Jonh Barcenas and colleagues, with an educational heriberto from [employer]. Review of Systems Const Denies chills, Denies fatigue, Denies fever(s), Denies headache(s) and Denies weakness ENT Denies dizziness and Denies headache(s) Card Denies chest pain, Denies lightheadedness, Denies dyspnea and Denies other (Palpitations) Resp Denies cough, Denies dyspnea, Denies wheezing and Denies other ( shortness of breath) Musc Denies numbness and Denies tingling Neuro Denies dizziness, Denies headache(s), Denies numbness, Denies tingling, Denies paresthesias and Denies weakness Psych Denies anxiety and Denies depression Endo Denies fatigue Aller/Immun Denies wheezing Physical exam (Primary Care) Vital Signs: Last Vital Signs Temp 98.0 F 05/11/24 08:35 Pulse 78 05/11/24 08:35 Resp 14 05/11/24 08:35 BP 110/58 L 05/11/24 08:35 Pulse Ox 97 05/11/24 08:35 Oxygen Delivery Method Room Air 05/11/24 08:35 BMI result Body Mass Index 19.5 Tobacco/Smoking Status: Tobacco use Status Tobacco use date assessed 06/17/23 05/11/24 08:34 Patient Tobacco Use Status Former Tobacco user 05/11/24 08:34 Tobacco use type Cigarette 05/11/24 08:34 e-Cigarette/Vaping Use Never Used 05/11/24 08:34 Thrive Assessment: Date of Thrive Assessment Date Thrive assessed 10/30/23 05/11/24 08:34 Currently or been in a relationship where the following occur: No concerns reported Const General: no acute distress and well developed Nutritional Appearance: underweight Orientation/consciousness: patient oriented x3 [facility] Head: Yes normocephalic and Yes atraumatic Eyes General: appearance normal, both eyes and all related structures Pupils: Equal, round and reactive pupils present EOM: EOMs intact bilaterally Resp Effort & Inspection: normal respiratory effort Auscultation: clear to auscultation bilaterally Cardio Rate: regular rate Rhythm: regular rhythm Heart sounds: S1 normal heart sound present, S2 normal heart sound present, no gallops, no murmurs and no rubs Neuro General: patient oriented x3 and gait normal Cranial nerves: Yes Equal, round and reactive pupils present Psych Affect: normal affect Coding Level of Care Code Est Pt Level 3 (95344) Diagnoses Essential hypertension I10 Underweight R63.6 Elevated fasting glucose R73.01 Assessment & Plan Assessment & Plan (1) Essential hypertension: Code(s): I10 - Essential (primary) hypertension Category: Medical Plan: Blood?pressure?is?controlled.??Goal?is?less?than?140/90 Continue?current?medication (2) Underweight: Code(s): R63.6 - Underweight Category: Medical Plan: Weight?remains?stable. Encouraged?increase?calories?and?protein Will?continue?to?monitor (3) Elevated fasting glucose: Code(s): R73.01 - Impaired fasting glucose Category: Medical Plan: History?of?some?elevated?fasting?blood?sugars?but?his?A1c?is?4.8%.??Well?within?normal?range Medications: Refilled tizanidine 2 mg PO BEDTIME 30 days PRN 30 tabs 0RF muscle spasticity
[2024-05-11 08:35] VITALS: BP 110/58; PULSE 78; RESP 14; TEMP 36.7; O2SAT 97; BMI 19.5
== END 2024-05-11 09:19 | disposition home or self-care (01) ==
PROVIDERS: PCP Family Medicine; Visit Provider Family Medicine
DX: I10 Essential (primary) hypertension (principal); R63.6 Underweight; R73.01 Impaired fasting glucose

== ENCOUNTER → 2024-05-11 08:22 | Outpatient (BNVA) | payer MEDICARE, SELFPAY | PROVIDERS: PCP Family Medicine; Visit Provider Family Medicine | DX: I10 Essential (primary) hypertension (principal); R63.6 Underweight; R73.01 Impaired fasting glucose | CPT/HCPCS: 99212 ==

== ENCOUNTER 2024-08-24 08:23 | Outpatient (AMB) | payer MEDICARE, SELFPAY ==
--- NOTE | 2024-08-24 08:38 | MHC.PC.OV ---
Vital Signs 08/24/24 08:41 Height 5 ft 10 in Weight 139 lb 4 oz BMI 20.0 BP 110/64 Blood Pressure Location Lt brachial Position Sitting Respiration 14 Pulse 86 Pulse Source Pulse Oximeter Temp 98.0 F Temp Source Oral Pulse Oximetry (%) 94 Oxygen Delivery Method Room Air Intake Visit Reasons: f/u HTN, underweight Intake Note: patient is scheduled for htn and underweight mangt Information Technology Project Manager Required: No Allergies grass pollen Allergy (Verified 08/24/24 08:40) Itchy Eyes Medication List - Last Reconciled 08/24/24 by Manuel Cavazos MD amlodipine 10 mg PO DAILY 90 days fluoxetine 10 mg PO DAILY 90 days gabapentin 600 mg PO QID 90 days hydrochlorothiazide 12.5 mg PO DAILY 90 days tizanidine 2 mg PO BEDTIME PRN 30 days Tobacco use date assessed: 06/17/23 Dental Screening Dental Screen Date: 10/30/23 HPI f/u HTN, underweight HPI Details 69 y/o male presents to f/u HTN, underweight. BP today 110/64, 86p. He is on hydrochlorothiazide 12.5mg, amlodipine 10mg daily. Has gained more weight - 136 lbs to 139lbs. BMI today 20.0. Pt reports depression. He has lost his in April. HPI Comments History of Present Illness Details Documentation assistance for Manuel Cavazos MD, was provided by Angel Segovia, R Programmer on 08/24/2024 at 8:58 AM EST. I, Dr. Cavazos, have read, observed, and verified documentation. COUNTS INCLUDE 234 BEDS AT THE [facility] Medical History No pertinent past medical history Surgical History History of back surgery Family History Mother No problems noted. Father No problems noted. Brother FH: mental illness Other Substance abuse Social History (Updated 10/30/23 @ 08:58 by MARICRUZ Bond) Housing: House Alcohol intake: current Alcohol intake frequency: 0-2 drinks per day Alcohol type: hard liquor Patient Tobacco Use Status: Former Tobacco user Tobacco use type: Cigarette e-Cigarette/Vaping Use: Never Used Second Hand Smoke Exposure: No service: No Current occupational status: retired and disabled Current occupational exposures/hazards: No Cognitive needs: No Hearing needs: No Vision needs: No Questionnaire PHQ-9 Over the last 2 weeks, how often have you been bothered by any of the following problems? 1. Little interest or pleasure in doing things: not at all 2. Feeling down, depressed, or hopeless: not at all 3. Trouble falling or staying asleep, or sleeping too much: not at all 4. Feeling tired or having little energy: not at all 5. Poor appetite or overeating: not at all 6. Feeling bad about yourself - or that you are a failure or have let yourself or your family down: not at all 7. Trouble concentrating on things, such as reading the newspaper or watching television: not at all 8. Moving or speaking so slowly that other people could have noticed. Or the opposite - being so fidgety or restless that you have been moving around a lot more than usual: not at all 9. Thoughts that you would be better off or of hurting yourself in some way: not at all Total score: 0 Depression Screening Interpretation: Negative Depression Screening Done: Yes [id number] - PHQ-9 Billing: Yes Source: Developed by Drs. Maykel Alvarez, Ashley Barcenas, Jonh Pollard and colleagues, with an educational heriberto from [employer]. Thrive Questionnaire Date Thrive assessed: 05/11/24 I am a: Patient What is your living situation today?: I have a steady place to live Within the past 12 months, did the food you bought not last and you didn't have the money to get more?: Never true Within the past 12 months, did you worry whether your food would run out before you got money to buy more?: Never true Do you have trouble paying for medicines?: No Do you have trouble getting transportation to medical appointments?: No Do you have trouble paying your heating and electricity bill?: No Do you have trouble taking care of your child, family member or friend?: No Do you have trouble with day-to-day activities such as bathing, preparing meals, shopping, managing finances, etc.?: No Are you currently unemployed and looking for a job?: No Are you interested in more education?: No Please select the resources that you would like help with: None Currently or been in a relationship where the following occur: No concerns reported THRIVE Score: 0 MADDY-7 AMB Questionnaire MADDY-7 Date MADDY - 7 assessed: 10/30/23 Source: Developed by Drs. Maykel Alvarez, Ashley Barcenas, Jonh Pollard and colleagues, with an educational heriberto from [employer]. Review of Systems Const Denies chills, Denies fatigue, Denies fever(s), Denies headache(s) and Denies weakness ENT Denies dizziness and Denies headache(s) Card Denies dyspnea Resp Denies cough, Denies dyspnea, Denies wheezing and Denies other (shortness of breath) Musc Denies numbness and Denies tingling Neuro Denies dizziness, Denies headache(s), Denies numbness, Denies tingling and Denies weakness Psych Denies anxiety and Reports depression Endo Denies fatigue Aller/Immun Denies wheezing Physical exam (Primary Care) Vital Signs: Last Vital Signs Temp 98.0 F 08/24/24 08:41 Pulse 86 08/24/24 08:41 Resp 14 08/24/24 08:41 BP 110/64 08/24/24 08:41 Pulse Ox 94 08/24/24 08:41 Oxygen Delivery Method Room Air 08/24/24 08:41 BMI result Body Mass Index 20.0 Tobacco/Smoking Status: Tobacco use Status Tobacco use date assessed 06/17/23 08/24/24 08:39 Patient Tobacco Use Status Former Tobacco user 08/24/24 08:39 Tobacco use type Cigarette 08/24/24 08:39 e-Cigarette/Vaping Use Never Used 08/24/24 08:39 PHQ-9: PHQ-9 Score PHQ-9: Total score 0 08/24/24 08:43 Depression Screening Interpretation: Negative Thrive Assessment: Date of Thrive Assessment Date Thrive assessed 05/11/24 08/24/24 08:39 Currently or been in a relationship where the following occur: No concerns reported Const General: well developed; No acute distress Nutritional Appearance: well nourished Orientation/consciousness: patient oriented x3 HENMT Head: Yes normocephalic and Yes atraumatic Eyes General: appearance normal, both eyes and all related structures Pupils: Equal, round and reactive pupils present EOM: EOMs intact bilaterally Resp Effort & Inspection: normal respiratory effort Auscultation: clear to auscultation bilaterally Cardio Rate: regular rate Rhythm: regular rhythm Heart sounds: S1 normal heart sound present, S2 normal heart sound present, no gallops, no murmurs and no rubs Neuro General: patient oriented x3 and gait normal Cranial nerves: Yes Equal, round and reactive pupils present Psych Affect: normal affect Coding Level of Care Code Est Pt Level 4 (86713) Diagnoses Essential hypertension I10 Underweight R63.6 Depression with anxiety F41.8 Additional Codes PHQ-9 - 32047 - PHQ-9 Billing: Yes ([id number]) Assessment & Plan Assessment & Plan (1) Essential hypertension: Code(s): I10 - Essential (primary) hypertension Category: Medical Plan: Blood?pressure?is?well?controlled.??Goal?is?less?than?140/90 Continue?current?medications (2) Underweight: Code(s): R63.6 - Underweight Category: Medical Plan: Weight?has?increased Continue?working?at increased?calories?and?increase?protein?in?diet Stable Will?continue?to?monitor (3) Depression with anxiety: Code(s): F41.8 - Other specified anxiety disorders Category: Medical Plan: Patient's?white?passed?away?in?March He?has?had?Prozac?in?the?distant?past?and?would?like?to?try?this?again Will?start?fluoxetine?10?mg?daily Discussed?therapist?and?he?think?about?this Medications: New fluoxetine 10 mg PO DAILY 90 days 90 caps 3RF
[2024-08-24 08:41] VITALS: BP 110/64; PULSE 86; RESP 14; TEMP 36.7; O2SAT 94
== END 2024-08-24 09:04 | disposition home or self-care (01) ==
LOC: HO.HMCFM 08:24
PROVIDERS: PCP Family Medicine; Visit Provider Family Medicine
DX: I10 Essential (primary) hypertension (principal); R63.6 Underweight; F41.8 Other specified anxiety disorders

== ENCOUNTER → 2024-08-24 08:23 | Outpatient (BNVA) | payer MEDICARE, SELFPAY | PROVIDERS: PCP Family Medicine; Visit Provider Family Medicine | DX: I10 Essential (primary) hypertension (principal); R63.6 Underweight; F32.A Depression, unspecified; F41.8 Other specified anxiety disorders; Z68.20 Body mass index [BMI] 20.0-20.9, adult | CPT/HCPCS: 96127; 99212 ==

== ENCOUNTER 2025-01-25 08:31 | Outpatient (AMB) | payer MEDICARE, SELFPAY ==
--- NOTE | 2025-01-25 08:40 | A.OFFPC_ITS ---
Vital Signs 01/25/25 08:41 Height 5 ft 10 in Weight 141 lb 4 oz BMI 20.3 BP 110/60 Blood Pressure Location Lt brachial Position Sitting Respiration 16 Pulse 77 Pulse Source Pulse Oximeter Temp 98.2 F Temp Source Oral Pulse Oximetry (%) 93 Oxygen Delivery Method Room Air Intake Visit Reasons: f/u htn, weight Intake Note: patient is scheduled to follow up for htn and weight management Cook Room Supervisor Required: No Allergies grass pollen Allergy (Verified 01/25/25 08:41) Itchy Eyes Medication List - Last Reconciled 01/25/25 by Manuel Cavazos MD amlodipine 10 mg PO DAILY 90 days gabapentin 600 mg PO QID 90 days hydrochlorothiazide 12.5 mg PO DAILY 90 days tizanidine 2 mg PO BEDTIME PRN 30 days Tobacco use date assessed: 06/17/23 Dental Screening Dental Screen Date: 10/30/23 HPI f/u htn, weight HPI Details 69 y/o male presents to f/u HTN, weight. Blood pressure today 110/60, 77p. He is on amlodipine 10mg, HCTZ 12.5mg daily. He had gained a couple pounds since last office visit. BMI 20.3. HPI Comments History of Present Illness Details Documentation assistance for Manuel Cavazos MD, was provided by Angel Segovia, Drip Molder on 01/25/2025 at 8:50 AM EST. I, Dr. Cavazos, have read, observed, and verified documentation. [facility] Medical History No pertinent past medical history Surgical History History of back surgery Family History Mother No problems noted. Father No problems noted. Brother FH: mental illness Other Substance abuse Social History (Updated 10/30/23 @ 08:58 by MARICRUZ Bond) Housing: House Alcohol intake: current Alcohol intake frequency: 0-2 drinks per day Alcohol type: hard liquor Patient Tobacco Use Status: Former Tobacco user Tobacco use type: Cigarette e-Cigarette/Vaping Use: Never Used Second Hand Smoke Exposure: No service: No Current occupational status: retired and disabled Current occupational exposures/hazards: No Cognitive needs: No Hearing needs: No Vision needs: No Questionnaire Thrive Questionnaire Date Thrive assessed: 05/11/24 I am a: Patient What is your living situation today?: I have a steady place to live Within the past 12 months, did the food you bought not last and you didn't have the money to get more?: Never true Within the past 12 months, did you worry whether your food would run out before you got money to buy more?: Never true Do you have trouble paying for medicines?: No Do you have trouble getting transportation to medical appointments?: No Do you have trouble paying your heating and electricity bill?: No Do you have trouble taking care of your child, family member or friend?: No Do you have trouble with day-to-day activities such as bathing, preparing meals, shopping, managing finances, etc.?: No Are you currently unemployed and looking for a job?: No Are you interested in more education?: No Please select the resources that you would like help with: None Currently or been in a relationship where the following occur: No concerns reported THRIVE Score: 0 MADDY-7 AMB Questionnaire MADDY-7 Date MADDY - 7 assessed: 10/30/23 Source: Developed by Drs. Maykel Alvarez, Ashley Barcenas, Jonh Pollard and colleagues, with an educational heriberto from [employer]. Review of Systems Const Denies chills, Denies fatigue, Denies fever(s), Denies headache(s) and Denies weakness ENT Denies dizziness and Denies headache(s) Card Denies dyspnea Resp Denies cough, Denies dyspnea, Denies wheezing and Denies other (shortness of breath) Musc Denies numbness and Denies tingling Neuro Denies dizziness, Denies headache(s), Denies numbness, Denies tingling and Denies weakness Psych Denies anxiety and Denies depression Endo Denies fatigue Aller/Immun Denies wheezing Physical exam (Primary Care) Vital Signs: Last Vital Signs Temp 98.2 F 01/25/25 08:41 Pulse 77 01/25/25 08:41 Resp 16 01/25/25 08:41 BP 110/60 01/25/25 08:41 Pulse Ox 93 01/25/25 08:41 Oxygen Delivery Method Room Air 01/25/25 08:41 BMI result Body Mass Index 20.3 Tobacco/Smoking Status: Tobacco use Status Tobacco use date assessed 06/17/23 01/25/25 08:44 Patient Tobacco Use Status Former Tobacco user 01/25/25 08:44 Tobacco use type Cigarette 01/25/25 08:44 e-Cigarette/Vaping Use Never Used 01/25/25 08:44 Thrive Assessment: Date of Thrive Assessment Date Thrive assessed 05/11/24 01/25/25 08:44 Currently or been in a relationship where the following occur: No concerns reported Const General: well developed; No acute distress Nutritional Appearance: well nourished Orientation/consciousness: patient oriented x3 HENMT Head: Yes normocephalic and Yes atraumatic Eyes General: appearance normal, both eyes and all related structures Pupils: Equal, round and reactive pupils present EOM: EOMs intact bilaterally Resp Effort & Inspection: normal respiratory effort Auscultation: clear to auscultation bilaterally Cardio Rate: regular rate Rhythm: regular rhythm Heart sounds: S1 normal heart sound present, S2 normal heart sound present, no gallops, no murmurs and no rubs Neuro General: patient oriented x3 and gait normal Cranial nerves: Yes Equal, round and reactive pupils present Psych Affect: normal affect Coding Level of Care Code Est Pt Level 3 (83813) Diagnoses Essential hypertension I10 Weight loss R63.4 Depression with anxiety F41.8 Assessment & Plan Assessment & Plan (1) Essential hypertension: Code(s): I10 - Essential (primary) hypertension Category: Medical Plan: Blood pressure is well controlled. Goal is less than 140/90 Continue current medications (2) Weight loss: Code(s): R63.4 - Abnormal weight loss Category: Medical Plan: Patient had unintentional weight loss previously and was underweight. He notes this was primarily during the illness and passing of his . Has been steadily gaining some weight and he wants to gained another 4 lb or so. Encouraged healthy diet (3) Depression with anxiety: Code(s): F41.8 - Other specified anxiety disorders Category: Medical Plan: Patient notes that this is easing up. He has not been taking fluoxetine consistently. He will hold off on this for now. He still has some and can restart and let me know if he needs use it again. Orders: Orders Comprehensive [place]. Panel Fast Today Z00.00 - Encounter for general adult medical examination without abnormal findings Lipid Panel Today Z00.00 - Encounter for general adult medical examination without abnormal findings Prostate Specific Antigen Scr Today Z12.5 - Encounter for screening for malignant neoplasm of prostate Microalbumin, Random (w Creat) Today I10 - Essential (primary) hypertension UA CC w/rflx Micro + Cult Today Z00.00 - Encounter for general adult medical examination without abnormal findings TSH reflex Free T4 Today Z00.00 - Encounter for general adult medical examina tion without abnormal findings Vitamin B12 and Folate Today E53.8 - Deficiency of other specified B group vitamins Vitamin D 25-OH Total Today E55.9 - Vitamin D deficiency, unspecified Complete Blood Count Auto Diff Today Z00.00 - Encounter for general adult medical examination without abnormal findings Medications: Discontinued fluoxetine Discontinued Reason: Doctor's Order 10 mg PO DAILY 90 days 90 caps 3RF
[2025-01-25 08:41] VITALS: BP 110/60; PULSE 77; RESP 16; TEMP 36.8; O2SAT 93; BMI 20.3
== END 2025-01-25 10:07 | disposition home or self-care (01) ==
LOC: HO.HMCFM 08:32
PROVIDERS: PCP Family Medicine; Visit Provider Family Medicine
DX: I10 Essential (primary) hypertension (principal); R63.4 Abnormal weight loss; F41.8 Other specified anxiety disorders

== ENCOUNTER → 2025-01-25 08:31 | Outpatient (BNVA) | payer MEDICARE, SELFPAY | PROVIDERS: PCP Family Medicine; Visit Provider Family Medicine | DX: I10 Essential (primary) hypertension (principal); R63.4 Abnormal weight loss; F41.8 Other specified anxiety disorders | CPT/HCPCS: 99212 ==